=== PATIENT | male | born 1970 | race Caucasian/White ===

== ENCOUNTER 2016-11-17 11:51 | Emergency (ER) | payer OTHER ==
[2016-11-17 11:55] VITALS: BP 150/91; PULSE 82; RESP 18; TEMP 98.7; O2SAT 100
--- NOTE | 2016-11-17 12:24 | C.PDOC ---
History Of Present Illness 46 y/o male with PMHx of sciatica presents to ED with complaints of left lower back pain for 1 week. Patient states he saw PMD on 11/12/16 was prescribed Ibuprofen, Flexeril and Tramadol which he is in compliance with but states there is no relief. Patient reports similar pain 2 years ago but on the right lower back. Patient denies urinary or bowel retention or incontinence, fever, n/ v/d, numbness or any other complaints at this time, recent procedure. Time Seen by Provider: 11/17/16 12:05 Chief Complaint (Nursing): Back Pain History Per: Patient History/Exam Limitations: no limitations Onset/Duration Of Symptoms: Days Current Symptoms Are (Timing): Still Present Quality Of Discomfort: "Pain" Previous Symptoms: Back Pain, Chronic Pain Exacerbating Factor(s): Standing Past Medical History Reviewed: Historical Data, Nursing Documentation, Vital Signs Vital Signs: Last Vital Signs Temp 98.7 F 11/17/16 11:53 Pulse 82 11/17/16 11:53 Resp 18 11/17/16 11:53 BP 150/91 H 11/17/16 11:53 Pulse Ox 100 11/17/16 12:27 - Medical History PMH: HTN (non-compliant) Family History: States: Unknown Family Hx - Social History Hx Tobacco Use: Yes Hx Alcohol Use: No Hx Substance Use: No - Immunization History Hx Tetanus Toxoid Vaccination: No Hx Influenza Vaccination: No Hx Pneumococcal Vaccination: No Review Of Systems Except As Marked, All Systems Reviewed And Found Negative. Gastrointestinal: Negative for: Diarrhea Genitourinary: Negative for: Incontinence Physical Exam - Physical Exam Additional Physical Exam Comments: Constitutional: No acute distress. Head: Normocephalic. Atraumatic. Eyes: PERRL. ENT: Moist mucous membranes. Neck: Supple. Cardiovascular: Regular rate. Radial pulse 2+ bilaterally. Chest: No tenderness. Respiratory: Clear to auscultation bilaterally. GI: Soft. Nontender. Nondistended. Back: Left Paraspinal Tenderness. + straight leg raising. No Midline Tenderness Musculoskeletal: No tenderness or swelling of extremities. Skin: No rash. Neurologic: Alert, no focal deficit. Sensation to light touch intact B/L to legs and saddle area. Motor 5/5x4 ED Course And Treatment O2 Sat by Pulse Oximetry: 100 (RA) Pulse Ox Interpretation: Normal Medical Decision Making Medical Decision Making: XR shows normal alignment and no fracture. Patient states he has follow up arranged with PMD and states he will likely be sent for MRI. I advised continuing these medications and to return to the ER for fever, urinary or bowel changes, motor weakness or numbness. Disposition - Disposition Referrals: Brad Simental MD [Staff Provider] - Disposition: HOME/ ROUTINE Disposition Time: 12:52 Condition: STABLE Instructions: Sciatica (ED) - Clinical Impression Clinical Impression: Low back pain - Scribe Statement The provider has reviewed the documentation as recorded by the Scribe Merly Saldaña All medical record entries made by the Yenniferibe were at my direction and personally dictated by me. I have reviewed the chart and agree that the record accurately reflects my personal performance of the history, physical exam, medical decision making, and the department course for this patient. I have also personally directed, reviewed, and agree with the discharge instructions and disposition.
--- NOTE | 2016-11-17 16:20 | RAD ---
PROCEDURE: Radiographs of the Lumbar Spine. HISTORY: LUMBOSACRAL spine films, back pain COMPARISON: No prior. FINDINGS: BONES: Normal alignment. No listhesis. No fracture. DISC SPACES: Unremarkable. OTHER FINDINGS: None. IMPRESSION: Unremarkable radiographs of the lumbar spine.
== END 2016-11-17 13:12 | disposition home or self-care (01) ==
LOC: C.ER 11:51
DX: M54.5 Low back pain (principal)

== ENCOUNTER 2016-11-24 12:26 | Emergency (ER) | payer OTHER | END 2016-11-24 13:57 | disposition home or self-care (01) | LOC: C.ER 12:26 | DX: M54.32 Sciatica, left side (principal); R20.2 Paresthesia of skin ==